=== PATIENT | male | born 1945 | race Caucasian/White ===

== ENCOUNTER 2018-03-31 11:10 | Observation (INO) ==
[2018-03-31] MEDS ORDERED: SODIUM CHLORIDE 0.9% 1,000 ML IV STA ×2 (11:42→15:54)
[2018-03-31] MEDS ORDERED: PANTOPRAZOLE 40 MG VIAL IV STA (11:42)
[2018-03-31 12:09] LABS: Basophils % 0.2 % (0.0-0.8); Hematocrit 38.7 VOL% (42.0-52.0); Hemoglobin 13.2 GM/DL (14.0-18.0); Immature Granulocytes % 0.8 %; Immature Granulocytes Absolute 0.18 #; Lymphocytes % 8.9 % (21.2-54.2); Mean Corpuscular HGB Conc 34.1 GM/DL (32-36); Mean Corpuscular Hemoglobin 31 PG (27-34); Mean Corpuscular Volume 91.7 FL (87-102); Mean Platelet Volume 10.2 FL (9.6-12.0); Monocytes # 2.6 10*3/uL (0.11-0.8); Monocytes % 11.7 % (1.7-12.7); Neutrophils # 17.7 10*3/uL (1.4-7.4); Neutrophils % 78.4 % (38.7-73.9); Platelet Count 276 T/CUMM (130-400); Red Blood Count 4.22 MC/CUMM (3.8-5.5); White Blood Count 22.6 T/CUMM (4-12)
[2018-03-31 12:24] LABS: Apearance,Urine Slightly Hazy (Clear); Bilirubin,Urine Negative (Negative); Blood, Urine Small mg/dL (Negative); Glucose,Urine (UA) Negative (Negative); Hyaline Casts,Urine 10 /LPF (0-3); Ketones,Urine Negative (Negative); Mucus,Urine Many /LPF (Occasional); Nitrite,Urine Negative (Negative); Protein,Urine 100 MG/DL; RBC,Urine 23 /HPF (0-4); Squamous Epithelial Cell,Urine Occasional /HPF (0-10); Urine Color Amber (Yellow); Urine Specific Gravity 1.028 (1.001-1.035); WBC,Urine <1 /HPF (0-6)
[2018-03-31 12:34] LABS: Albumin 3.5 G/DL (3.4-5.0); Bilirubin,Total 1.4 MG/DL (0.2-1.0); Calcium 8.7 MG/DL (8.5-10.1); Potassium 3.4 MMOL/L (3.5-5.1); Total Protein 7.7 G/DL (6.4-8.3)
[2018-03-31 13:02] LABS: Lymphocytes 7 % (20-55); Segmented Neutrophils 82 % (50-85); Total Cells Counted 100
[2018-03-31 13:07] LABS: Microcytosis 1+
[2018-03-31 13:11] LABS: Anisocytosis 1+
[2018-03-31 14:22] LABS: Lactic Acid 0.9 MMOL/L (0.4-2.0)
[2018-03-31] MEDS ORDERED: PIPERACILLIN/TAZOBACTAM 3,375 MG in SODIUM CHLORIDE 0.9% 100 ML IV STA (15:34)
[2018-03-31] MEDS ORDERED: HYDROmorphone 2 MG/1 ML VIAL IV STA (15:37)
[2018-03-31] MEDS ORDERED: ONDANSETRON 4 MG/2 ML VIAL IV STA (15:37)
[2018-03-31] MEDS ORDERED: ONDANSETRON 4 MG/2 ML VIAL IV PRN (17:56)
[2018-03-31] MEDS ORDERED: HYDROmorphone 2 MG/1 ML VIAL IV PRN (17:56)
[2018-03-31] MEDS ORDERED: ACETAMINOPHEN 325 MG TABLET PO PRN (17:56)
[2018-03-31] MEDS: LACTATED RINGERS 1,000 ML IV SCH (18:00)
[2018-03-31] MEDS ORDERED: PNEUMOCOCCAL VACCINE (13 VALENT) 0.5 ML SYRINGE IM ONE (19:04)
[2018-03-31] MEDS ORDERED: ASPIRIN EC 81 MG TABLET PO SCH (21:00)
[2018-03-31] MEDS ORDERED: LOVASTATIN 20 MG TABLET PO SCH (21:00)
[2018-04-01] MEDS: PIPERACILLIN/TAZOBACTAM 3,375 MG in SODIUM CHLORIDE 0.9% 100 ML IV SCH ×2 (03:50→16:39)
[2018-04-01] MEDS: LACTATED RINGERS 1,000 ML IV SCH ×2 (03:50→16:40)
[2018-04-01 05:08] LABS: Basophils % 0.2 % (0.0-0.8); Eosinophils # 0.1 10*3/uL (0.0-0.87); Eosinophils % 0.4 % (0.00-10.9); Hematocrit 33.6 VOL% (42.0-52.0); Hemoglobin 11.5 GM/DL (14.0-18.0); Immature Granulocytes % 0.8 %; Immature Granulocytes Absolute 0.13 #; Lymphocytes # 2.1 10*3/uL (1.4-4.0); Lymphocytes % 12.7 % (21.2-54.2); Mean Corpuscular HGB Conc 34.2 GM/DL (32-36); Mean Corpuscular Hemoglobin 31 PG (27-34); Mean Corpuscular Volume 89.8 FL (87-102); Mean Platelet Volume 10.3 FL (9.6-12.0); Monocytes # 1.8 10*3/uL (0.11-0.8); Monocytes % 10.9 % (1.7-12.7); Neutrophils # 12.2 10*3/uL (1.4-7.4); Platelet Count 237 T/CUMM (130-400); Red Blood Count 3.74 MC/CUMM (3.8-5.5); Red Cell Distribution Width 12.9 % (9.3-17.3); White Blood Count 16.3 T/CUMM (4-12)
[2018-04-01 05:58] LABS: Albumin 2.8 G/DL (3.4-5.0); Bilirubin,Total 1.9 MG/DL (0.2-1.0); Calcium 8.4 MG/DL (8.5-10.1); Osmolality,Calculated 275.5 MOS/KG (273-304); Total Protein 6.5 G/DL (6.4-8.3)
[2018-04-01] MEDS ORDERED: POTASSIUM CHLORIDE RIDER 10 MEQ in PREMIX 1 EACH IV PRN (07:29)
[2018-04-01] MEDS ORDERED: cefOXitin 2,000 MG in SYRINGE 1 EACH IV ONE (07:29)
[2018-04-01] MEDS ORDERED: BENAZEPRIL 10 MG TABLET PO SCH (09:00)
[2018-04-01] MEDS ORDERED: hydroCHLOROthiazide 12.5 MG CAPSULE PO SCH (09:00)
[2018-04-01] MEDS ORDERED: PANTOPRAZOLE 40 MG TABLET PO SCH (09:00)
[2018-04-01] MEDS: POTASSIUM CHLORIDE RIDER 10 MEQ in PREMIX 1 EACH IV SCH ×3 (09:33→16:52)
[2018-04-01] MEDS ORDERED: TISSUE ADHESIVE 1 EACH APPLICATOR TOP ONE (11:50)
[2018-04-01] MEDS ORDERED: LIDOCAINE 1%/EPI INJ 20 ML VIAL ONE (11:50)
[2018-04-01] MEDS: HYDROmorphone 2 MG/1 ML VIAL IV PRN ×2 (13:00→13:05)
[2018-04-01] MEDS ORDERED: PROPOFOL 200 MG/20 ML VIAL IV ONE (13:15)
[2018-04-01] MEDS ORDERED: MIDAZOLAM 2 MG/2 ML VIAL ONE (13:16)
[2018-04-01] MEDS ORDERED: fentaNYL 100 MCG/2 ML VIAL ONE (13:16)
[2018-04-01] MEDS ORDERED: GLYCOPYRROLATE 0.4 MG/2 ML VIAL ONE (13:16)
[2018-04-01] MEDS ORDERED: ONDANSETRON 4 MG/2 ML VIAL ONE ×2 (13:16→13:22)
[2018-04-01] MEDS ORDERED: KETOROLAC 30 MG/1 ML VIAL ONE (13:16)
[2018-04-01] MEDS ORDERED: ROCURONIUM 100 MG/10 ML VIAL IV ONE (13:17)
[2018-04-01] MEDS ORDERED: NEOSTIGMINE 10 MG/10 ML VIAL ONE (13:17)
[2018-04-01] MEDS ORDERED: HYDROmorphone 2 MG/1 ML VIAL ONE (13:22)
[2018-04-01] MEDS ORDERED: ONDANSETRON 4 MG/2 ML VIAL IV PRN (13:32)
[2018-04-01 15:07] LABS: Basophils # 0.1 10*3/uL (0.0-0.2); Basophils % 0.3 % (0.0-0.8); Eosinophils # 0.1 10*3/uL (0.0-0.87); Eosinophils % 0.3 % (0.00-10.9); Hematocrit 33.1 VOL% (42.0-52.0); Hemoglobin 11.2 GM/DL (14.0-18.0); Immature Granulocytes % 1.2 %; Immature Granulocytes Absolute 0.22 #; Lymphocytes # 1.2 10*3/uL (1.4-4.0); Lymphocytes % 6.7 % (21.2-54.2); Mean Corpuscular HGB Conc 33.8 GM/DL (32-36); Mean Corpuscular Hemoglobin 32 PG (27-34); Mean Corpuscular Volume 93.5 FL (87-102); Mean Platelet Volume 10.4 FL (9.6-12.0); Monocytes # 1.6 10*3/uL (0.11-0.8); Neutrophils % 82.5 % (38.7-73.9); Platelet Count 239 T/CUMM (130-400); Red Blood Count 3.54 MC/CUMM (3.8-5.5); White Blood Count 18.2 T/CUMM (4-12)
[2018-04-01 15:37] LABS: Albumin 2.7 G/DL (3.4-5.0); Bilirubin,Total 1.6 MG/DL (0.2-1.0); Calcium 8.3 MG/DL (8.5-10.1); Osmolality,Calculated 277.4 MOS/KG (273-304); Potassium 3.1 MMOL/L (3.5-5.1); Total Protein 6.5 G/DL (6.4-8.3)
[2018-04-01 18:08] VITALS: BP 118/64
== END 2018-04-01 18:05 | disposition home or self-care (01) | DRG 418 ==
LOC: N.ED 11:10 → N.EDINP 16:10 → INTOOBSV 16:10 → N.EDINP 17:20 → N.3E 17:55
PROVIDERS: ADMIT Surgery; ATTEND Surgery
PROC: LAPCHOL (2018-04-01 11:40)

== ENCOUNTER 2020-09-17 15:37 | Inpatient (IN) ==
[2020-09-17] MEDS ORDERED: SODIUM CHLORIDE 0.9% 1,000 ML IV STA (16:20)
[2020-09-17] MEDS ORDERED: DEXAMETHASONE 4 MG/1 ML VIAL IV STA (16:20)
[2020-09-17 16:56] LABS: Basophils % 0.2 % (0.0-0.8); Hemoglobin 12.7 GM/DL (14.0-18.0); Immature Granulocytes % 1.2 %; Immature Granulocytes Absolute 0.16 #; Lymphocytes % 7.8 % (21.2-54.2); Mean Corpuscular HGB Conc 34.3 GM/DL (32-36); Mean Corpuscular Volume 91.6 FL (87-102); Mean Platelet Volume 10.2 FL (9.6-12.0); Monocytes % 8.5 % (1.7-12.7); Neutrophils % 82.3 % (38.7-73.9); Platelet Count 240 T/CUMM (130-400); Red Blood Count 4.04 MC/CUMM (3.8-5.5); Red Cell Distribution Width 13.4 % (9.3-17.3); White Blood Count 13.1 T/CUMM (4-12)
[2020-09-17 17:16] LABS: Bilirubin,Total 0.7 MG/DL (0.2-1.0); Calcium 8.9 MG/DL (8.5-10.1); Ferritin 754.8 ng/ml (26-388); Osmolality,Calculated 278.1 MOS/KG (273-304); Potassium 4.1 MMOL/L (3.5-5.1); Total Protein 7.5 G/DL (5.0-7.5)
[2020-09-17] MEDS ORDERED: cefTRIAXone 1,000 MG in SODIUM CHLORIDE 0.9% 100 ML IV STA (17:52)
[2020-09-17] MEDS ORDERED: SIMETHICONE CHEW 125 MG TABLET PO PRN (19:24)
[2020-09-17] MEDS ORDERED: MORPHINE 4 MG/1 ML VIAL IV PRN (19:24)
[2020-09-17] MEDS ORDERED: guaiFENesin/DM ER 600-30 MG TABLET PO PRN (19:24)
[2020-09-17] MEDS ORDERED: BISACODYL 5 MG TABLET PO PRN (19:24)
[2020-09-17] MEDS ORDERED: diphenhydrAMINE CAP 25 MG CAPSULE PO PRN (19:24)
[2020-09-17] MEDS ORDERED: ALUMINUM/MAGNES/SIMETH MAX STR 30 ML UDCUP PO PRN (19:24)
[2020-09-17] MEDS ORDERED: DOCUSATE SODIUM 100 MG CAPSULE PO PRN (19:24)
[2020-09-17] MEDS ORDERED: DEXTROSE 50% 25 GM/50 ML VIAL IV PRN (19:24)
[2020-09-17] MEDS ORDERED: GLUCAGON 1 MG VIAL IM PRN (19:24)
[2020-09-17] MEDS ORDERED: ONDANSETRON 4 MG/2 ML VIAL IV PRN (19:24)
[2020-09-17] MEDS ORDERED: NICOTINE 21 MG/24 HR PATCH TRANSDERM PRN (19:24)
[2020-09-17] MEDS ORDERED: CALCIUM CARBONATE CHEW 500 MG TABLET PO PRN (19:24)
[2020-09-17] MEDS ORDERED: FLUTICASONE 50 MCG NASAL SPRAY 16 GM BOTTLE BOTH NARES PRN (19:31)
[2020-09-17] MEDS ORDERED: ENOXAPARIN 120 MG/0.8 ML SYRINGE SUBCUT ONE (20:01)
[2020-09-17] MEDS ORDERED: ENOXAPARIN 40 MG/0.4 ML SYRINGE SUBCUT SCH (21:00)
[2020-09-17] MEDS: SODIUM CHLORIDE 0.9% 1,000 ML IV SCH (21:26)
[2020-09-17] MEDS: MULTIVITAMIN (CENTRUM) TABLET PO SCH (21:26)
[2020-09-17] MEDS: ASPIRIN EC 81 MG TABLET PO SCH (21:26)
[2020-09-17] MEDS: ASCORBIC ACID 500 MG TABLET PO SCH (21:26)
[2020-09-17] MEDS: FAMOTIDINE 20 MG TABLET PO SCH (21:26)
[2020-09-17] MEDS: AZITHROMYCIN INJ 500 MG in SODIUM CHLORIDE 0.9% 250 ML IV SCH (21:26)
[2020-09-17] MEDS: MELATONIN 3 MG TABLET PO PRN (21:27)
[2020-09-18] MEDS: ALBUTEROL INHALER 18 GM INH SCH ×4 (00:13→18:29)
[2020-09-18 06:20] LABS: Basophils % 0.1 % (0.0-0.8); Hemoglobin 11.2 GM/DL (14.0-18.0); Immature Granulocytes Absolute 0.11 #; Lymphocytes # 1.2 10*3/uL (1.4-4.0); Lymphocytes % 10.9 % (21.2-54.2); Mean Corpuscular Volume 96.4 FL (87-102); Mean Platelet Volume 10.2 FL (9.6-12.0); Platelet Count 237 T/CUMM (130-400); Red Blood Count 3.63 MC/CUMM (3.8-5.5); Red Cell Distribution Width 13.8 % (9.3-17.3); White Blood Count 10.6 T/CUMM (4-12)
[2020-09-18 06:38] LABS: Calcium 8.2 MG/DL (8.5-10.1); Osmolality,Calculated 288.4 MOS/KG (273-304)
[2020-09-18] MEDS: ASCORBIC ACID 500 MG TABLET PO SCH ×2 (08:10→22:16)
[2020-09-18] MEDS: hydroCHLOROthiazide 25 MG TABLET PO SCH (08:10)
[2020-09-18] MEDS: CHOLECALCIFEROL 1,000 UNIT TABLET PO SCH (08:10)
[2020-09-18] MEDS: DEXAMETHASONE 4 MG/1 ML VIAL IV SCH (08:11)
[2020-09-18] MEDS: ZINC GLUCONATE 50 MG TABLET PO SCH (08:11)
[2020-09-18] MEDS: FAMOTIDINE 20 MG TABLET PO SCH ×2 (08:11→22:16)
[2020-09-18] MEDS ORDERED: SODIUM CHLORIDE 0.9% 1,000 ML IV PRN (10:56)
[2020-09-18] MEDS ORDERED: REMDESIVIR 200 MG in SODIUM CHLORIDE 0.9% 210 ML IV ONE (11:00)
[2020-09-18] MEDS: SODIUM CHLORIDE 0.9% 1,000 ML IV SCH (13:31)
[2020-09-18] MEDS: SIMVASTATIN 20 MG TABLET PO SCH (16:36)
[2020-09-18] MEDS: ACETAMINOPHEN 325 MG TABLET PO PRN ×2 (16:43→22:39)
[2020-09-18] MEDS: ASPIRIN EC 81 MG TABLET PO SCH (22:16)
[2020-09-18] MEDS: MULTIVITAMIN (CENTRUM) TABLET PO SCH (22:16)
[2020-09-18] MEDS: ENOXAPARIN 40 MG/0.4 ML SYRINGE SUBCUT SCH (22:16)
[2020-09-18] MEDS: AZITHROMYCIN INJ 500 MG in SODIUM CHLORIDE 0.9% 250 ML IV SCH (22:17)
[2020-09-18] MEDS: cefTRIAXone 1,000 MG in SYRINGE 1 EACH IV SCH (22:18)
[2020-09-19] MEDS: SODIUM CHLORIDE 0.9% 1,000 ML IV SCH ×2 (01:25→20:08)
[2020-09-19] MEDS: ALBUTEROL INHALER 18 GM INH SCH ×4 (01:59→20:08)
[2020-09-19 06:54] LABS: Basophils % 0.1 % (0.0-0.8); Hematocrit 34.3 VOL% (42.0-52.0); Hemoglobin 10.9 GM/DL (14.0-18.0); Immature Granulocytes % 1.7 %; Immature Granulocytes Absolute 0.29 #; Lymphocytes # 1.2 10*3/uL (1.4-4.0); Lymphocytes % 6.7 % (21.2-54.2); Mean Corpuscular HGB Conc 31.8 GM/DL (32-36); Mean Corpuscular Volume 97.4 FL (87-102); Mean Platelet Volume 10.2 FL (9.6-12.0); Monocytes % 3.2 % (1.7-12.7); Neutrophils % 88.3 % (38.7-73.9); Platelet Count 270 T/CUMM (130-400); Red Blood Count 3.52 MC/CUMM (3.8-5.5); White Blood Count 17.4 T/CUMM (4-12)
[2020-09-19 07:27] LABS: Calcium 8.7 MG/DL (8.5-10.1); Ferritin 805.7 ng/ml (26-388); Osmolality,Calculated 280.7 MOS/KG (273-304); Potassium 3.8 MMOL/L (3.5-5.1)
[2020-09-19] MEDS: REMDESIVIR 100 MG in SODIUM CHLORIDE 0.9% 100 ML IV SCH (09:21)
[2020-09-19] MEDS: hydroCHLOROthiazide 25 MG TABLET PO SCH (09:22)
[2020-09-19] MEDS: CHOLECALCIFEROL 1,000 UNIT TABLET PO SCH (09:22)
[2020-09-19] MEDS: ASCORBIC ACID 500 MG TABLET PO SCH ×2 (09:22→20:46)
[2020-09-19] MEDS: DEXAMETHASONE 4 MG/1 ML VIAL IV SCH (09:22)
[2020-09-19] MEDS: ZINC GLUCONATE 50 MG TABLET PO SCH (09:23)
[2020-09-19] MEDS: FAMOTIDINE 20 MG TABLET PO SCH ×2 (09:23→20:46)
[2020-09-19] MEDS: ACETAMINOPHEN 325 MG TABLET PO PRN (14:13)
[2020-09-19] MEDS: SIMVASTATIN 20 MG TABLET PO SCH (16:24)
[2020-09-19] MEDS: AZITHROMYCIN INJ 500 MG in SODIUM CHLORIDE 0.9% 250 ML IV SCH (20:45)
[2020-09-19] MEDS: ENOXAPARIN 40 MG/0.4 ML SYRINGE SUBCUT SCH (20:46)
[2020-09-19] MEDS: ASPIRIN EC 81 MG TABLET PO SCH (20:46)
[2020-09-19] MEDS: MULTIVITAMIN (CENTRUM) TABLET PO SCH (20:46)
[2020-09-19] MEDS: cefTRIAXone 1,000 MG in SYRINGE 1 EACH IV SCH (20:47)
[2020-09-20] MEDS: ALBUTEROL INHALER 18 GM INH SCH ×4 (00:37→19:01)
[2020-09-20 07:07] LABS: Basophils % 0.3 % (0.0-0.8); Eosinophils % 0.1 % (0.00-10.9); Hematocrit 37.2 VOL% (42.0-52.0); Immature Granulocytes % 3.4 %; Immature Granulocytes Absolute 0.48 #; Mean Corpuscular HGB Conc 32.3 GM/DL (32-36); Mean Corpuscular Volume 97.4 FL (87-102); Mean Platelet Volume 10.1 FL (9.6-12.0); Monocytes % 4.5 % (1.7-12.7); Neutrophils % 84.7 % (38.7-73.9); Platelet Count 299 T/CUMM (130-400); Red Blood Count 3.82 MC/CUMM (3.8-5.5); Red Cell Distribution Width 13.7 % (9.3-17.3); White Blood Count 14.2 T/CUMM (4-12)
[2020-09-20 07:26] LABS: Calcium 8.7 MG/DL (8.5-10.1); Osmolality,Calculated 284.4 MOS/KG (273-304); Potassium 3.9 MMOL/L (3.5-5.1)
[2020-09-20] MEDS: REMDESIVIR 100 MG in SODIUM CHLORIDE 0.9% 100 ML IV SCH (08:16)
[2020-09-20] MEDS: ZINC GLUCONATE 50 MG TABLET PO SCH (08:16)
[2020-09-20] MEDS: DEXAMETHASONE 4 MG/1 ML VIAL IV SCH (08:16)
[2020-09-20] MEDS: CHOLECALCIFEROL 1,000 UNIT TABLET PO SCH (08:16)
[2020-09-20] MEDS: ASCORBIC ACID 500 MG TABLET PO SCH ×2 (08:17→21:00)
[2020-09-20] MEDS: FAMOTIDINE 20 MG TABLET PO SCH ×2 (08:17→20:50)
[2020-09-20] MEDS: hydroCHLOROthiazide 25 MG TABLET PO SCH (08:17)
[2020-09-20] MEDS ORDERED: FUROSEMIDE 40 MG/4 ML VIAL IV ONE (08:18)
[2020-09-20] MEDS: SODIUM CHLORIDE 0.9% 1,000 ML IV SCH (09:12)
[2020-09-20] MEDS: SIMVASTATIN 20 MG TABLET PO SCH (16:08)
[2020-09-20] MEDS: AZITHROMYCIN INJ 500 MG in SODIUM CHLORIDE 0.9% 250 ML IV SCH (20:47)
[2020-09-20] MEDS: cefTRIAXone 1,000 MG in SYRINGE 1 EACH IV SCH (20:59)
[2020-09-20] MEDS: ACETAMINOPHEN 325 MG TABLET PO PRN (21:00)
[2020-09-20] MEDS: ENOXAPARIN 40 MG/0.4 ML SYRINGE SUBCUT SCH (21:00)
[2020-09-20] MEDS: MELATONIN 3 MG TABLET PO PRN (21:01)
[2020-09-20] MEDS: ASPIRIN EC 81 MG TABLET PO SCH (21:01)
[2020-09-20] MEDS: MULTIVITAMIN (CENTRUM) TABLET PO SCH (21:01)
[2020-09-21] MEDS: ALBUTEROL INHALER 18 GM INH SCH ×4 (00:45→18:30)
[2020-09-21 07:09] LABS: Basophils # 0.1 10*3/uL (0.0-0.2); Basophils % 0.4 % (0.0-0.8); Hematocrit 38.3 VOL% (42.0-52.0); Hemoglobin 12.7 GM/DL (14.0-18.0); Immature Granulocytes % 4.4 %; Immature Granulocytes Absolute 0.71 #; Lymphocytes # 1.2 10*3/uL (1.4-4.0); Lymphocytes % 7.3 % (21.2-54.2); Mean Corpuscular HGB Conc 33.2 GM/DL (32-36); Mean Corpuscular Volume 94.6 FL (87-102); Mean Platelet Volume 10.6 FL (9.6-12.0); Monocytes % 4.4 % (1.7-12.7); Neutrophils % 83.5 % (38.7-73.9); Platelet Count 366 T/CUMM (130-400); Red Blood Count 4.05 MC/CUMM (3.8-5.5); Red Cell Distribution Width 13.2 % (9.3-17.3)
[2020-09-21 07:42] LABS: Calcium 9.1 MG/DL (8.5-10.1); Osmolality,Calculated 283.5 MOS/KG (273-304); Potassium 3.7 MMOL/L (3.5-5.1)
[2020-09-21] MEDS ORDERED: FUROSEMIDE 40 MG/4 ML VIAL IV ONE (07:50)
[2020-09-21 08:08] LABS: Band Neutrophils 2 % (0-10); Lymphocytes 8 % (20-55); Myelocytes 1 %; Segmented Neutrophils 84 % (50-85); Total Cells Counted 100
[2020-09-21 08:09] LABS: Platelet Estimate Normal
[2020-09-21 08:10] LABS: Hypochromasia Slight
[2020-09-21 08:11] LABS: Microcytosis 1+
[2020-09-21] MEDS: FAMOTIDINE 20 MG TABLET PO SCH ×2 (08:50→20:00)
[2020-09-21] MEDS: ZINC GLUCONATE 50 MG TABLET PO SCH (08:50)
[2020-09-21] MEDS: DEXAMETHASONE 4 MG/1 ML VIAL IV SCH (08:50)
[2020-09-21] MEDS: ENALAPRIL 10 MG TABLET PO SCH (08:50)
[2020-09-21] MEDS: CHOLECALCIFEROL 1,000 UNIT TABLET PO SCH (08:50)
[2020-09-21] MEDS: hydroCHLOROthiazide 25 MG TABLET PO SCH (08:50)
[2020-09-21] MEDS: ASCORBIC ACID 500 MG TABLET PO SCH ×2 (08:50→20:00)
[2020-09-21] MEDS ORDERED: BENAZEPRIL 10 MG TABLET PO SCH (09:30)
[2020-09-21] MEDS: REMDESIVIR 100 MG in SODIUM CHLORIDE 0.9% 100 ML IV SCH (10:12)
[2020-09-21] MEDS: SIMVASTATIN 20 MG TABLET PO SCH (17:38)
[2020-09-21] MEDS: ASPIRIN EC 81 MG TABLET PO SCH (20:00)
[2020-09-21] MEDS: OMEGA 3 ACID ETHYL ESTERS 1 GM CAPSULE PO SCH (20:00)
[2020-09-21] MEDS: MELATONIN 3 MG TABLET PO PRN (20:00)
[2020-09-21] MEDS: ACETAMINOPHEN 325 MG TABLET PO PRN (20:00)
[2020-09-21] MEDS: ENOXAPARIN 40 MG/0.4 ML SYRINGE SUBCUT SCH (20:00)
[2020-09-21] MEDS: MULTIVITAMIN (CENTRUM) TABLET PO SCH (20:23)
[2020-09-21] MEDS: cefTRIAXone 1,000 MG in SYRINGE 1 EACH IV SCH (20:25)
[2020-09-21] MEDS: AZITHROMYCIN INJ 500 MG in SODIUM CHLORIDE 0.9% 250 ML IV SCH (20:26)
[2020-09-22] MEDS: ALBUTEROL INHALER 18 GM INH SCH ×4 (00:10→18:15)
[2020-09-22 08:01] LABS: Basophils # 0.1 10*3/uL (0.0-0.2); Basophils % 0.3 % (0.0-0.8); Hematocrit 40.4 VOL% (42.0-52.0); Hemoglobin 13.4 GM/DL (14.0-18.0); Immature Granulocytes % 5.3 %; Immature Granulocytes Absolute 0.98 #; Lymphocytes # 1.3 10*3/uL (1.4-4.0); Mean Corpuscular HGB Conc 33.2 GM/DL (32-36); Mean Corpuscular Volume 94.8 FL (87-102); Monocytes % 3.2 % (1.7-12.7); Neutrophils % 84.2 % (38.7-73.9); Platelet Count 389 T/CUMM (130-400); Red Blood Count 4.26 MC/CUMM (3.8-5.5); Red Cell Distribution Width 12.9 % (9.3-17.3); White Blood Count 18.4 T/CUMM (4-12)
[2020-09-22 08:15] LABS: Calcium 9.3 MG/DL (8.5-10.1); Osmolality,Calculated 279.8 MOS/KG (273-304); Potassium 3.8 MMOL/L (3.5-5.1)
[2020-09-22 08:22] LABS: Anisocytosis 1+; Band Neutrophils 4 % (0-10); Lymphocytes 11 % (20-55); Metamyelocytes 1 %; Platelet Estimate Normal; Segmented Neutrophils 80 % (50-85); Total Cells Counted 100
[2020-09-22 08:23] LABS: Macrocytosis Slight
[2020-09-22] MEDS: ENALAPRIL 10 MG TABLET PO SCH (09:30)
[2020-09-22] MEDS: FAMOTIDINE 20 MG TABLET PO SCH (09:30)
[2020-09-22] MEDS: DEXAMETHASONE 4 MG/1 ML VIAL IV SCH (09:30)
[2020-09-22] MEDS: CHOLECALCIFEROL 1,000 UNIT TABLET PO SCH (09:30)
[2020-09-22] MEDS: hydroCHLOROthiazide 25 MG TABLET PO SCH (09:30)
[2020-09-22] MEDS: ASCORBIC ACID 500 MG TABLET PO SCH ×2 (09:30→20:07)
[2020-09-22] MEDS: ZINC GLUCONATE 50 MG TABLET PO SCH (09:30)
[2020-09-22] MEDS: REMDESIVIR 100 MG in SODIUM CHLORIDE 0.9% 100 ML IV SCH (09:35)
[2020-09-22 09:58] LABS: ABG Base Excess 6.7 MMOL/L (-2.5-2.5); ABG HCO3 29.8 MMOL/L (20-26); ABG Oxygen Saturation 69.4 % (95-100); ABG PCO2 38.1 MM HG (35-48); ABG PH 7.506 (7.35-7.45); ABG TCO2 26.1 MMOL/L (23-27)
[2020-09-22 10:00] LABS: ABG PO2 37.4 MM HG (80-95)
[2020-09-22] MEDS ORDERED: ENOXAPARIN 40 MG/0.4 ML SYRINGE SUBCUT SCH (12:30)
[2020-09-22] MEDS: methylPREDNISolone SOD SUC 40 MG/1 ML VIAL IV SCH ×2 (12:44→19:38)
[2020-09-22] MEDS ORDERED: LORazepam 2 MG/1 ML VIAL IV ONE (13:07)
[2020-09-22] MEDS ORDERED: LORazepam 2 MG/1 ML VIAL ONE (13:09)
[2020-09-22] MEDS ORDERED: HALOPERIDOL 5 MG/ML AMP IV ONE (13:25)
[2020-09-22] MEDS ORDERED: HALOPERIDOL 5 MG/ML AMP ONE (13:27)
[2020-09-22] MEDS ORDERED: HALOPERIDOL 5 MG/ML AMP IM ONE (13:29)
[2020-09-22] MEDS ORDERED: ETOMIDATE 20 MG/10 ML VIAL IV ONE ×2 (13:41→13:48)
[2020-09-22] MEDS ORDERED: SUCCINYLCHOLINE 200 MG/10 ML VIAL ONE (13:43)
[2020-09-22] MEDS ORDERED: MIDAZOLAM 10 MG/2 ML VIAL ONE (13:45)
[2020-09-22] MEDS ORDERED: SUCCINYLCHOLINE 200 MG/10 ML VIAL IV ONE (13:48)
[2020-09-22] MEDS ORDERED: MIDAZOLAM 2 MG/2 ML VIAL IV ONE ×2 (13:48→13:52)
[2020-09-22 15:09] LABS: ABG HCO3 29.5 MMOL/L (20-26); ABG Oxygen Saturation 91.9 % (95-100); ABG PCO2 53.2 MM HG (35-48); ABG PH 7.362 (7.35-7.45); ABG PO2 71.2 MM HG (80-95); ABG TCO2 31.1 MMOL/L (23-27); Allen Test Positive; Pt O2 Delivery Device Ventilator
[2020-09-22] MEDS: FAMOTIDINE 20 MG/2 ML VIAL IV SCH (16:49)
[2020-09-22] MEDS: SIMVASTATIN 20 MG TABLET PO SCH (16:49)
[2020-09-22] MEDS: ENOXAPARIN 100 MG/ML SYRINGE SUBCUT SCH (16:49)
[2020-09-22] MEDS: ASPIRIN EC 81 MG TABLET PO SCH (20:07)
[2020-09-22] MEDS: MULTIVITAMIN (CENTRUM) TABLET PO SCH (20:07)
[2020-09-22] MEDS: cefTRIAXone 1,000 MG in SYRINGE 1 EACH IV SCH (20:07)
[2020-09-22] MEDS: OMEGA 3 ACID ETHYL ESTERS 1 GM CAPSULE PO SCH (20:07)
[2020-09-22] MEDS: AZITHROMYCIN INJ 500 MG in SODIUM CHLORIDE 0.9% 250 ML IV SCH (20:21)
[2020-09-23] MEDS: ALBUTEROL INHALER 18 GM INH SCH ×4 (00:23→20:28)
[2020-09-23] MEDS: methylPREDNISolone SOD SUC 40 MG/1 ML VIAL IV SCH ×3 (03:32→20:15)
[2020-09-23] MEDS: ENOXAPARIN 100 MG/ML SYRINGE SUBCUT SCH ×2 (03:33→16:20)
[2020-09-23] MEDS: FAMOTIDINE 20 MG/2 ML VIAL IV SCH ×2 (03:34→16:22)
[2020-09-23 04:27] LABS: ABG Base Excess 4.3 MMOL/L (-2.5-2.5); ABG HCO3 33.5 MMOL/L (20-26); ABG Oxygen Saturation 94.9 % (95-100); ABG PO2 86.3 MM HG (80-95); ABG TCO2 35.8 MMOL/L (23-27); Allen Test Positive; Pt O2 Delivery Device Ventilator
[2020-09-23 04:34] LABS: ABG PCO2 74.7 MM HG (35-48)
[2020-09-23 06:07] LABS: Basophils # 0.1 10*3/uL (0.0-0.2); Basophils % 0.6 % (0.0-0.8); Eosinophils % 0.1 % (0.00-10.9); Hemoglobin 12.4 GM/DL (14.0-18.0); Immature Granulocytes % 6.3 %; Immature Granulocytes Absolute 1.09 #; Lymphocytes % 5.5 % (21.2-54.2); Mean Corpuscular HGB Conc 32.6 GM/DL (32-36); Mean Corpuscular Volume 94.3 FL (87-102); Mean Platelet Volume 10.6 FL (9.6-12.0); Monocytes % 2.9 % (1.7-12.7); Neutrophils % 84.6 % (38.7-73.9); Platelet Count 371 T/CUMM (130-400); Red Blood Count 4.03 MC/CUMM (3.8-5.5); Red Cell Distribution Width 13.1 % (9.3-17.3); White Blood Count 17.2 T/CUMM (4-12)
[2020-09-23 06:37] LABS: Albumin 2.2 G/DL (3.4-5.0); Bilirubin,Total 1.3 MG/DL (0.2-1.0); Calcium 9.1 MG/DL (8.5-10.1); Osmolality,Calculated 286.8 MOS/KG (273-304); Total Protein 6.7 G/DL (5.0-7.5)
[2020-09-23] MEDS: ZINC GLUCONATE 50 MG TABLET PO SCH (08:02)
[2020-09-23] MEDS: CHOLECALCIFEROL 1,000 UNIT TABLET PO SCH (08:02)
[2020-09-23] MEDS: ASCORBIC ACID 500 MG TABLET PO SCH ×2 (08:02→20:12)
[2020-09-23 08:49] LABS: Anisocytosis Slight; Band Neutrophils 6 % (0-10); Lymphocytes 5 % (20-55); Macrocytosis 1+; Metamyelocytes 3 %; Myelocytes 3 %; Platelet Estimate Normal; Segmented Neutrophils 81 % (50-85); Total Cells Counted 100
[2020-09-23 09:02] LABS: ABG Base Excess 5.1 MMOL/L (-2.5-2.5); ABG HCO3 28.9 MMOL/L (20-26); ABG PCO2 62.7 MM HG (35-48); ABG PH 7.333 (7.35-7.45); ABG PO2 77.8 MM HG (80-95); ABG TCO2 29.4 MMOL/L (23-27); Allen Test Positive; Pt O2 Delivery Device Ventilator
[2020-09-23] MEDS: INSULIN REGULAR 100 UNIT/ML SUBCUT SCH ×2 (12:11→19:00)
[2020-09-23] MEDS: SIMVASTATIN 20 MG TABLET PO SCH (16:20)
[2020-09-23] MEDS: ASPIRIN EC 81 MG TABLET PO SCH (20:12)
[2020-09-23] MEDS: OMEGA 3 ACID ETHYL ESTERS 1 GM CAPSULE PO SCH (20:13)
[2020-09-23] MEDS: MULTIVITAMIN (CENTRUM) TABLET PO SCH (20:13)
[2020-09-23] MEDS: cefTRIAXone 1,000 MG in SYRINGE 1 EACH IV SCH (20:16)
[2020-09-24] MEDS: INSULIN REGULAR 100 UNIT/ML SUBCUT SCH ×4 (00:46→18:22)
[2020-09-24] MEDS: ALBUTEROL INHALER 18 GM INH SCH ×4 (01:07→18:22)
[2020-09-24 04:18] LABS: ABG Base Excess 7.5 MMOL/L (-2.5-2.5); ABG HCO3 31.2 MMOL/L (20-26); ABG Oxygen Saturation 95.5 % (95-100); ABG PCO2 68.5 MM HG (35-48); ABG PH 7.335 (7.35-7.45); ABG PO2 85.3 MM HG (80-95); ABG TCO2 31.9 MMOL/L (23-27); Allen Test Positive; Pt O2 Delivery Device Ventilator
[2020-09-24 04:42] LABS: Basophils # 0.1 10*3/uL (0.0-0.2); Basophils % 0.5 % (0.0-0.8); Eosinophils % 0.2 % (0.00-10.9); Hematocrit 38.4 VOL% (42.0-52.0); Hemoglobin 12.7 GM/DL (14.0-18.0); Immature Granulocytes % 8.3 %; Lymphocytes # 0.9 10*3/uL (1.4-4.0); Lymphocytes % 4.4 % (21.2-54.2); Mean Corpuscular HGB Conc 33.1 GM/DL (32-36); Mean Corpuscular Volume 94.1 FL (87-102); Mean Platelet Volume 10.4 FL (9.6-12.0); Monocytes % 4.2 % (1.7-12.7); Neutrophils % 82.4 % (38.7-73.9); Platelet Count 426 T/CUMM (130-400); Red Blood Count 4.08 MC/CUMM (3.8-5.5); Red Cell Distribution Width 12.9 % (9.3-17.3); White Blood Count 20.5 T/CUMM (4-12)
[2020-09-24 05:09] LABS: Band Neutrophils 1 % (0-10); Hypochromasia 1+; Lymphocytes 7 % (20-55); Metamyelocytes 3 %; Myelocytes 1 %; Promyelocytes 2 %; Segmented Neutrophils 77 % (50-85); Smudge Cells Few; Total Cells Counted 100
[2020-09-24 05:10] LABS: Microcytosis 1+
[2020-09-24] MEDS: methylPREDNISolone SOD SUC 40 MG/1 ML VIAL IV SCH ×3 (05:16→20:35)
[2020-09-24] MEDS: FAMOTIDINE 20 MG/2 ML VIAL IV SCH ×2 (05:19→15:55)
[2020-09-24] MEDS: ENOXAPARIN 100 MG/ML SYRINGE SUBCUT SCH ×2 (05:22→16:00)
[2020-09-24 05:27] LABS: Albumin 2.2 G/DL (3.4-5.0); Bilirubin,Total 0.4 MG/DL (0.2-1.0); Calcium 9.5 MG/DL (8.5-10.1); Osmolality,Calculated 286.1 MOS/KG (273-304); Potassium 4.6 MMOL/L (3.5-5.1); Total Protein 6.9 G/DL (5.0-7.5)
[2020-09-24 06:39] LABS: PT Patient Result 11.1 SECS (9.8-11.9)
[2020-09-24] MEDS: ZINC GLUCONATE 50 MG TABLET PO SCH (08:36)
[2020-09-24] MEDS: CHOLECALCIFEROL 1,000 UNIT TABLET PO SCH (08:36)
[2020-09-24] MEDS: ASCORBIC ACID 500 MG TABLET PO SCH ×2 (08:36→20:33)
[2020-09-24] MEDS: hydrALAZINE 20 MG/1 ML VIAL IV PRN (16:00)
[2020-09-24] MEDS ORDERED: amLODIPine 5 MG TABLET PO SCH (17:00)
[2020-09-24] MEDS ORDERED: FUROSEMIDE 40 MG/4 ML VIAL IV ONE (17:00)
[2020-09-24] MEDS: SIMVASTATIN 20 MG TABLET PO SCH (18:22)
[2020-09-24] MEDS: ASPIRIN CHEW 81 MG TABLET PO SCH (20:33)
[2020-09-24] MEDS: cefTRIAXone 1,000 MG in SYRINGE 1 EACH IV SCH (20:34)
[2020-09-24] MEDS: MULTIVITAMIN (CENTRUM) TABLET PO SCH (20:34)
[2020-09-24] MEDS: OMEGA 3 ACID ETHYL ESTERS 1 GM CAPSULE PO SCH (20:34)
[2020-09-25] MEDS: ALBUTEROL INHALER 18 GM INH SCH ×4 (00:18→18:18)
[2020-09-25] MEDS: INSULIN REGULAR 100 UNIT/ML SUBCUT SCH ×4 (00:18→18:17)
[2020-09-25] MEDS: hydrALAZINE 20 MG/1 ML VIAL IV PRN (01:45)
[2020-09-25] MEDS: DILTIAZEM INJ 100 MG in SODIUM CHLORIDE 0.9% 100 ML IV SCH (02:45)
[2020-09-25 04:11] LABS: ABG HCO3 26.9 MMOL/L (20-26); ABG Oxygen Saturation 91.3 % (95-100); ABG TCO2 32.1 MMOL/L (23-27); Allen Test Positive; Pt O2 Delivery Device Ventilator
[2020-09-25 04:16] LABS: ABG PH 7.189 (7.35-7.45)
[2020-09-25 04:17] LABS: ABG PCO2 91.6 MM HG (35-48)
[2020-09-25] MEDS: methylPREDNISolone SOD SUC 40 MG/1 ML VIAL IV SCH ×2 (04:40→13:30)
[2020-09-25] MEDS: FAMOTIDINE 20 MG/2 ML VIAL IV SCH ×2 (04:40→15:36)
[2020-09-25 04:44] LABS: Basophils # 0.1 10*3/uL (0.0-0.2); Basophils % 0.1 % (0.0-0.8); Hematocrit 37.5 VOL% (42.0-52.0); Hemoglobin 11.8 GM/DL (14.0-18.0); Immature Granulocytes % 11.8 %; Immature Granulocytes Absolute 4.25 #; Lymphocytes # 1.4 10*3/uL (1.4-4.0); Mean Corpuscular HGB Conc 31.5 GM/DL (32-36); Mean Corpuscular Volume 99.5 FL (87-102); Mean Platelet Volume 11.1 FL (9.6-12.0); Monocytes % 5.2 % (1.7-12.7); NRBC # 0.07 10*3/uL; Neutrophils % 78.9 % (38.7-73.9); Platelet Count 561 T/CUMM (130-400); Red Blood Count 3.77 MC/CUMM (3.8-5.5); White Blood Count 35.9 T/CUMM (4-12)
[2020-09-25 05:09] LABS: Calcium 9.9 MG/DL (8.5-10.1); Osmolality,Calculated 306.1 MOS/KG (273-304)
[2020-09-25 05:10] LABS: Band Neutrophils 4 % (0-10); Lymphocytes 9 % (20-55); Nucleated Red Blood Cells 2 (0-5); Platelet Estimate Adequate; Segmented Neutrophils 79 % (50-85); Total Cells Counted 100
[2020-09-25 05:11] LABS: Hypochromasia Slight; Microcytosis Slight
[2020-09-25 05:57] VITALS: BP 115/60
[2020-09-25] MEDS ORDERED: SODIUM CHLORIDE 0.9% 500 ML IV ONE (07:50)
[2020-09-25] MEDS: PHENYLEPHRINE DRIP 40 MG/250 ML PREMIX IV PRN ×3 (08:50→23:05)
[2020-09-25] MEDS: CHOLECALCIFEROL 1,000 UNIT TABLET PO SCH (10:14)
[2020-09-25] MEDS: MICAFUNGIN 100 MG in SODIUM CHLORIDE 0.9% 100 ML IV SCH (10:14)
[2020-09-25] MEDS: ZINC GLUCONATE 50 MG TABLET PO SCH (10:15)
[2020-09-25] MEDS: ASCORBIC ACID 500 MG TABLET PO SCH ×2 (10:15→20:04)
[2020-09-25 13:55] LABS: ABG Base Excess 1.2 MMOL/L (-2.5-2.5); ABG HCO3 25.5 MMOL/L (20-26); ABG Oxygen Saturation 99.3 % (95-100); ABG TCO2 29.5 MMOL/L (23-27); Allen Test Positive; Pt O2 Delivery Device Ventilator
[2020-09-25 13:58] LABS: ABG PCO2 82.1 MM HG (35-48)
[2020-09-25] MEDS ORDERED: POLYETHYLENE GLYCOL POWDER 17 GM PACK PO PRN (15:01)
[2020-09-25] MEDS ORDERED: DIGOXIN 0.5 MG/2 ML AMP IV ONE ×2 (15:15→17:46)
[2020-09-25] MEDS: MEROPENEM 500 MG in SODIUM CHLORIDE 0.9% 100 ML IV SCH ×2 (15:35→20:06)
[2020-09-25] MEDS ORDERED: VANCOMYCIN INJ 1,500 MG in SODIUM CHLORIDE 0.9% 500 ML IV SCH (16:00)
[2020-09-25] MEDS: SIMVASTATIN 20 MG TABLET PO SCH (18:22)
[2020-09-25] MEDS ORDERED: DIGOXIN 0.5 MG/2 ML AMP IV PRN (18:33)
[2020-09-25] MEDS: ASPIRIN CHEW 81 MG TABLET PO SCH (20:04)
[2020-09-25] MEDS: DOCUSATE SODIUM 100 MG/10 ML UDCUP PO SCH (20:05)
[2020-09-25] MEDS: OMEGA 3 ACID ETHYL ESTERS 1 GM CAPSULE PO SCH (20:05)
[2020-09-25] MEDS: MULTIVITAMIN (CENTRUM) TABLET PO SCH (20:05)
[2020-09-26] MEDS: methylPREDNISolone SOD SUC 40 MG/1 ML VIAL IV SCH ×2 (00:58→12:26)
[2020-09-26] MEDS: ALBUTEROL INHALER 18 GM INH SCH ×3 (00:58→12:26)
[2020-09-26] MEDS: INSULIN REGULAR 100 UNIT/ML SUBCUT SCH ×3 (00:58→12:55)
[2020-09-26] MEDS: MEROPENEM 500 MG in SODIUM CHLORIDE 0.9% 100 ML IV SCH (02:22)
[2020-09-26] MEDS: PHENYLEPHRINE DRIP 40 MG/250 ML PREMIX IV PRN (02:36)
[2020-09-26] MEDS: DILTIAZEM INJ 100 MG in SODIUM CHLORIDE 0.9% 100 ML IV SCH (03:24)
[2020-09-26] MEDS: FAMOTIDINE 20 MG/2 ML VIAL IV SCH (04:34)
[2020-09-26 04:38] LABS: ABG Base Excess -2.1 MMOL/L (-2.5-2.5); ABG HCO3 22.7 MMOL/L (20-26); ABG Oxygen Saturation 97.8 % (95-100); ABG TCO2 26.2 MMOL/L (23-27)
[2020-09-26 04:46] LABS: ABG PH 7.187 (7.35-7.45)
[2020-09-26 05:07] LABS: Basophils # 0.1 10*3/uL (0.0-0.2); Basophils % 0.2 % (0.0-0.8); Hematocrit 33.6 VOL% (42.0-52.0); Hemoglobin 10.2 GM/DL (14.0-18.0); Immature Granulocytes % 11.6 %; Immature Granulocytes Absolute 5.63 #; Lymphocytes # 1.7 10*3/uL (1.4-4.0); Lymphocytes % 3.5 % (21.2-54.2); Mean Corpuscular HGB Conc 30.4 GM/DL (32-36); Mean Corpuscular Volume 103.7 FL (87-102); Mean Platelet Volume 11.5 FL (9.6-12.0); Monocytes % 5.2 % (1.7-12.7); NRBC # 0.33 10*3/uL; Neutrophils % 79.5 % (38.7-73.9); Platelet Count 421 T/CUMM (130-400); Red Blood Count 3.24 MC/CUMM (3.8-5.5); Red Cell Distribution Width 13.5 % (9.3-17.3)
[2020-09-26 05:15] LABS: White Blood Count 48.5 T/CUMM (4-12)
[2020-09-26 05:28] LABS: Band Neutrophils 2 % (0-10); Eosinophils 1 % (0-10); Hypochromasia 1+; Lymphocytes 6 % (20-55); Microcytosis 1+; Platelet Estimate Adequate; Segmented Neutrophils 84 % (50-85); Total Cells Counted 100
[2020-09-26 05:37] LABS: Bilirubin,Total 0.7 MG/DL (0.2-1.0); Calcium 8.6 MG/DL (8.5-10.1); Osmolality,Calculated 318.5 MOS/KG (273-304); Total Protein 6.4 G/DL (5.0-7.5)
[2020-09-26 05:47] LABS: Potassium 6.1 MMOL/L (3.5-5.1)
[2020-09-26] MEDS: PHENYLEPHRINE INJ 160 MG in SODIUM CHLORIDE 0.9% 234 ML IV PRN ×2 (06:06→14:24)
[2020-09-26] MEDS ORDERED: SODIUM POLYSTYRENE SULFATE 15 GM/60 ML BOTTLE PO ONE (06:28)
[2020-09-26] MEDS: MICAFUNGIN 100 MG in SODIUM CHLORIDE 0.9% 100 ML IV SCH (08:55)
[2020-09-26] MEDS: DOCUSATE SODIUM 100 MG/10 ML UDCUP PO SCH (08:56)
[2020-09-26] MEDS: ASCORBIC ACID 500 MG TABLET PO SCH (08:56)
[2020-09-26] MEDS: ZINC GLUCONATE 50 MG TABLET PO SCH (08:56)
[2020-09-26] MEDS: CHOLECALCIFEROL 1,000 UNIT TABLET PO SCH (08:56)
[2020-09-26] MEDS ORDERED: MORPHINE 4 MG/1 ML VIAL IV PRN (10:55)
[2020-09-26] MEDS ORDERED: LORazepam 2 MG/1 ML VIAL IV PRN (10:55)
[2020-09-26] MEDS ORDERED: MEROPENEM 500 MG in SODIUM CHLORIDE 0.9% 100 ML IV SCH (14:00)
[2020-09-27] MEDS ORDERED: FAMOTIDINE 20 MG/2 ML VIAL IV SCH (04:30)
== END 2020-09-26 17:50 | disposition expired | DRG 207 ==
LOC: N.ED 15:37 → N.2E 19:24 → SUATTDRO 19:24 → N.2E 20:24 → N.CC 09-22 11:45
PROVIDERS: ADMIT Internal Medicine; ATTEND Internal Medicine